=== PATIENT | male | born 1965 | race American Indian/Alaskan Native ===

== ENCOUNTER 2018-07-27 02:16 | Inpatient (IN) | payer MEDICAID ==
[2018-07-27 03:40] LABS: BASO % 0.4 % (0.0-2.0); EOS # 0.6 K/uL (0.0-0.7); EOS % 10.8 % (0.0-4.0); HEMOGLOBIN 14.4 g/dL (12.0-18.0); LYMPH # 1.6 K/uL (1.0-4.3); LYMPH % 28.3 % (20.0-40.0); MEAN CORPUSCULAR HEMOGLOBIN 29.4 pg (27.0-31.0); MEAN CORPUSCULAR HGB CONC 32.3 g/dL (33.0-37.0); MEAN PLATELET VOLUME 10.2 fL (7.2-11.7); MONO # 0.4 K/uL (0.0-0.8); MONO % 6.6 % (0.0-10.0); NEUT # 3.1 K/uL (1.8-7.0); NEUT % 53.9 % (50.0-75.0); RBC 4.88 Mil/uL (4.40-5.90); RED CELL DISTRIBUTION WIDTH 15.3 % (11.5-14.5); WHITE BLOOD COUNT 5.7 K/uL (4.8-10.8)
[2018-07-27 03:41] LABS: URINE BILIRUBIN NEGATIVE (NEGATIVE); URINE BLOOD NEGATIVE (NEGATIVE); URINE CLARITY Clear (Clear); URINE COLOR Straw (YELLOW); URINE GLUCOSE (UA) NORMAL (Normal); URINE LEUKOCYTE ESTERASE NEG Leu/uL (Negative); URINE PROTEIN NEGATIVE (NEGATIVE); URINE UROBILINOGEN NORMAL mg/dL (0.2-1.0)
--- NOTE | 2018-07-27 03:51 | C.PDOC ---
History Of Present Illness 53 year old male presents stating he has been feeling depressed for a while with SI and HI. Denies other complaints at this time. <Dago Davis R - Last Filed: 07/27/18 10:12> <Isac Mccord V - Last Filed: 07/27/18 08:30> History Per: Patient History/Exam Limitations: no limitations Onset/Duration Of Symptoms: Hrs Current Symptoms Are (Timing): Still Present Suicide/Self Injury Attempted (Context): None Associated Symptoms: Depression, Suicidal Thoughts, Other (Homicidal ideation) Involuntary Hold By: None Recent travel outside of the [place]: No <Dago Davis - Last Filed: 07/27/18 10:12> Chief Complaint (Nursing): Psychiatric Evaluation Past Medical History Vital Signs: Last Vital Signs Temp 98.7 F 07/27/18 07:04 Pulse 87 07/27/18 07:04 Resp 18 07/27/18 07:04 BP 131/74 07/27/18 07:04 Pulse Ox 99 07/27/18 07:04 - [facility] Procedures ALCOHOL DETOXIFICATION (03/30/14) DETOXIFICATION SERVICES FOR SUBSTANCE ABUSE TREATMENT (07/20/15) DRUG DETOXIFICATION (03/30/14) GROUP COUNSELING FOR SUBSTANCE ABUSE TREATMENT, BEHAVIORAL (07/20/15) INDIV PSYCHOTHERAPY FOR SUBSTANCE ABUSE, PSYCHOEDUCATION (07/20/15) INFLUENZA VACCINATION (03/30/14) MEDS MGMT FOR SUBSTANCE ABUSE TREATMENT, OTH REPL MED (07/20/15) <Isac Mccord V - Last Filed: 07/27/18 08:30> Reviewed: Historical Data, Nursing Documentation, Vital Signs Vital Signs: Last Vital Signs Temp 97.8 F 07/27/18 02:39 Pulse 99 H 07/27/18 02:39 Resp 18 07/27/18 02:39 BP 125/81 07/27/18 02:39 Pulse Ox 98 07/27/18 02:39 - Medical History PMH: Asthma, Diabetes, HTN Denies: Hepatitis, HIV, Seizures, Sexually Transmitted Disease Surgical History: Tonsillectomy - [facility] Procedures ALCOHOL DETOXIFICATION (03/30/14) DETOXIFICATION SERVICES FOR SUBSTANCE ABUSE TREATMENT (07/20/15) DRUG DETOXIFICATION (03/30/14) GROUP COUNSELING FOR SUBSTANCE ABUSE TREATMENT, BEHAVIORAL (07/20/15) INDIV PSYCHOTHERAPY FOR SUBSTANCE ABUSE, PSYCHOEDUCATION (07/20/15) INFLUENZA VACCINATION (03/30/14) MEDS MGMT FOR SUBSTANCE ABUSE TREATMENT, OTH REPL MED (07/20/15) Family History: States: Unknown Family Hx - Social History Hx Tobacco Use: Yes Hx Alcohol Use: Yes Hx Substance Use: Yes - Immunization History Hx Tetanus Toxoid Vaccination: No Hx Influenza Vaccination: No Hx Pneumococcal Vaccination: No <Dago Davis R - Last Filed: 07/27/18 10:12> Review Of Systems Constitutional: Negative for: Fever, Chills Cardiovascular: Negative for: Chest Pain, Palpitations Respiratory: Negative for: Cough, Shortness of Breath Gastrointestinal: Negative for: Nausea, Vomiting Neurological: Negative for: Weakness, Numbness Psych: Positive for: Depression, Suicidal ideation, Other (Homicidal ideation) <Dago Davis R - Last Filed: 07/27/18 10:12> Physical Exam - Physical Exam Appears: Non-toxic Skin: Normal Color, Warm, Dry Head: Atraumatic, Normacephalic Eye(s): bilateral: Normal Inspection Oral Mucosa: Moist Neck: Normal, Supple Chest: Symmetrical, No Tenderness Cardiovascular: Rhythm Regular Respiratory: Normal Breath Sounds, No Rales, No Rhonchi, No Wheezing Gastrointestinal/Abdominal: Soft, No Tenderness Neurological/Psych: Oriented x3, Normal Speech <Dago Davis R - Last Filed: 07/27/18 10:12> ED Course And Treatment - Laboratory Results Result Diagrams: 07/27/18 03:32 07/27/18 03:32 Lab Results: Total Bilirubin 0.2 mg/dL (0.2-1.3) 07/27/18 03:32 AST 55 U/L (17-59) 07/27/18 03:32 ALT 34 U/L (21-72) 07/27/18 03:32 Alkaline Phosphatase 58 U/L (38-126) 07/27/18 03:32 Total Protein 7.2 g/dL (6.3-8.3) 07/27/18 03:32 Albumin 4.2 g/dL (3.5-5.0) 07/27/18 03:32 Globulin 2.9 gm/dL (2.2-3.9) 07/27/18 03:32 Albumin/Globulin Ratio 1.4 (1.0-2.1) 07/27/18 03:32 Urine Color Straw (YELLOW) 07/27/18 03:32 Urine Clarity Clear (Clear) 07/27/18 03:32 Urine pH 5.0 (5.0-8.0) 07/27/18 03:32 Ur Specific Sunray 1.004 (1.003-1.030) 07/27/18 03:32 Urine Protein Negative mg/dL (NEGATIVE) 07/27/18 03:32 Urine Glucose (UA) Normal mg/dL (Normal) 07/27/18 03:32 Urine Ketones Negative mg/dL (NEGATIVE) 07/27/18 03:32 Urine Blood Negative (NEGATIVE) 07/27/18 03:32 Urine Nitrate Negative (NEGATIVE) 07/27/18 03:32 Urine Bilirubin Negative (NEGATIVE) 07/27/18 03:32 Urine Urobilinogen Normal mg/dL (0.2-1.0) 07/27/18 03:32 Ur Leukocyte Esterase Neg Chio/uL (Negative) 07/27/18 03:32 Urine WBC (Auto) 1 /hpf (0-5) 07/27/18 03:32 Urine RBC (Auto) < 1 /hpf (0-3) 07/27/18 03:32 <Isac Mccord V - Last Filed: 07/27/18 08:30> - Laboratory Results Result Diagrams: 07/27/18 03:32 07/27/18 03:32 Lab Results: Urine Color Straw (YELLOW) 07/27/18 03:32 Urine Clarity Clear (Clear) 07/27/18 03:32 Urine pH 5.0 (5.0-8.0) 07/27/18 03:32 Ur Specific Sunray 1.004 (1.003-1.030) 07/27/18 03:32 Urine Protein Negative mg/dL (NEGATIVE) 07/27/18 03:32 Urine Glucose (UA) Normal mg/dL (Normal) 07/27/18 03:32 Urine Ketones Negative mg/dL (NEGATIVE) 07/27/18 03:32 Urine Blood Negative (NEGATIVE) 07/27/18 03:32 Urine Nitrate Negative (NEGATIVE) 07/27/18 03:32 Urine Bilirubin Negative (NEGATIVE) 07/27/18 03:32 Urine Urobilinogen Normal mg/dL (0.2-1.0) 07/27/18 03:32 Ur Leukocyte Esterase Neg Chio/uL (Negative) 07/27/18 03:32 Urine WBC (Auto) 1 /hpf (0-5) 07/27/18 03:32 Urine RBC (Auto) < 1 /hpf (0-3) 07/27/18 03:32 O2 Sat by Pulse Oximetry: 98 (Room air) Pulse Ox Interpretation: Normal Progress Note: Blood work and urinalysis ordered. Crisis notified. <Dago Davis - Last Filed: 07/27/18 10:12> Disposition Discussed With : Angelo Gaines (admit to psych ) <Isac Mccord V - Last Filed: 07/27/18 08:30> - Disposition Disposition Time: 07:00 - POA Present On Arrival: None <Dago Davis - Last Filed: 07/27/18 10:12> - Disposition Disposition: HOSPITALIZED Condition: STABLE - Clinical Impression Clinical Impression: Opioid abuse, Depressed - Scribe Statement The provider has reviewed the documentation as recorded by the Scribe Boni Olvera All medical record entries made by the Scribe were at my direction and personally dictated by me. I have reviewed the chart and agree that the record accurately reflects my personal performance of the history, physical exam, medical decision making, and the department course for this patient. I have also personally directed, reviewed, and agree with the discharge instructions and disposition. <Dago Davis - Last Filed: 07/27/18 10:12>
[2018-07-27 03:53] LABS: ALB/GLOB RATIO 1.4 (1.0-2.1); ALBUMIN 4.2 g/dL (3.5-5.0); ALT/SGPT 34 U/L (21-72); AST/SGOT 55 U/L (17-59); BLOOD UREA NITROGEN 13 mg/dL (9-20); CALCIUM 9.8 mg/dl (8.6-10.4); GFR NON-AFRICAN AMERICAN 57
[2018-07-27 04:01] LABS: BARBITURATES, UR NEGATIVE (NEGATIVE); BENZODIAZEPINES, UR NEGATIVE (NEGATIVE); PHENCYCLIDINE, UR NEGATIVE (NEGATIVE)
[2018-07-27 04:12] LABS: OPIATES, UR POSITIVE (NEGATIVE)
[2018-07-27] MEDS ORDERED: Albuterol HFA 90 mcg/actuation (8 g) INH PRN (09:37)
--- NOTE | 2018-07-27 11:56 | PCM.PSYCH ---
Initial Psychiatric Evaluation - Initial Psychiatric Evaluation Type of Admission: Voluntary Legal Status: Capacity Chief Complaint (in patient's own words): I was feeling depressed and suicidal.' History of Present Illness and Precipitating Events: Pt is a 53 year old single male, who came to the [facility] ED for depressed mood and suicidal ideation and homicidal ideation. Patient reports history of few inpatient psychiatric hospitalizations in the past, in [place]. He also reports of history of few detoxes in the past. However he denies any history of follow-up with any psychiatrist. Patient reports history of abusing cocaine, heroin, marijuana and drinking. He reports that he is drinking up to 2 pints of liquor daily along with 12 beers. He also reports of sniffing 15-30 bags of heroin daily along with cocaine and marijuana. Patient reports that last night he consumed up to 2 pints of liquor along with 3 bundles of heroin, became increasingly suicidal and homicidal. He reports that he was feeling homicidal towards the people he was staying with. He also reports of feeling suicidal because of the living situation. Pt also reports hallucinations that he is "in hell." He stated that he sees his "mother and family looking down on me in my casket." He reports depressed mood, feelings of hopelessness and helplessness, poor sleep and poor appetite. He reports withdrawal symptoms from drinking and heroin including nausea, vomiting, shakes, anxiety, headaches, sweating, irritability. However he denies any DTs or any seizures. Patient reports of attending Methadone Maintenence program at [facility] where he was prescribed 70mg daily in 2016, but was discharged from the program after missing multiple days. Past medical history : HTN, COPD, type 2 diabetes. Current Medications: Active Medications Generic Name Dose Route Start Last Admin Trade Name Freq PRN Reason Stop Dose Admin Albuterol 1 puff 07/27/18 09:37 07/27/18 09:47 Ventolin Hfa 90 Mcg/Actuation (8 G) INH 1 unit RQ4 PRN Administration Shortness of Breath Pneumococcal Polyvalent Vaccine 0.5 ml 07/30/18 10:00 Pneumovax 23 Vaccine IM 07/30/18 10:01 .ONCE ONE Past Psychiatric History - Past Psychiatric History Previous Treatment History: None Pertinent Medical Hx (Current Medical&Sleep Prob, Allergies): Allergies Allergy/AdvReac Type Severity Reaction Status Date / Time No Known Allergies Allergy Verified 07/27/18 02:38 Advair. 03/30/14 Antihypertensive. 03/30/14 Inhaler. 03/30/14 Metformin 1,000 mg PO BID 03/30/14 Gabapentin [Neurontin] 300 mg PO TID #90 cap 07/25/15 hydroCHLOROthiazide [Microzide] 12.5 mg PO DAILY #30 cap 07/25/15 metFORMIN [glucOPHAGE] 1,000 mg PO BID #60 tab 07/25/15 traZODone [Desyrel] 50 mg PO HS PRN #30 tab 07/25/15 Review of Systems - Review of Systems All systems: reviewed and no additional remarkable complaints except - Psychiatric Psychiatric: Anxiety, Irritability, Suicidal Ideation Mental Status Examination - Personal Presentation Personal Presentation: Looks stated age - Affect Affect: Constricted, Depressed - Motor Activity Motor Activity: Calm - Reliability in Providing Information Reliability in Providing Information: Fair - Speech Speech: Organized - Mood Mood: Depressed, Anxious - Formal Thought Process Formal Thought Process: No Impairment - Obsessions/Compulsions Obsessions: No Compulsions: No - Cognitive Functions Orientation: Person, Place, Situation, Time Sensorium: Alert Attention/Concentration: Attentive Abstract Thinking: Downing Estimate of Intelligence: Below average Judgement: Imparied, as evidence by: Poor judgement, Imparied, as evidence by: Lack of insight into illness - Risk Risk: Suicidal, Homicidal, Withdrawal, Diminished functioning - Limitations Limitations: Living alone DSM 5 DX - DSM 5 DSM 5 Diagnosis: Major depressive disorder recurrent severe without psychotic features Alcohol use disorder severe Alcohol withdrawal Opioid use disorder severe Opioid withdrawal - Recommended/Plan of Treatment Treatment Recommendations and Plan of Treatment: Major depressive disorder recurrent severe without psychotic features Alcohol use disorder severe Alcohol withdrawal Opioid use disorder severe Opioid withdrawal -CBT -Psychoeducation -Supportive therapy and group therapy -Methadone taper for opiate withdrawal -Withdrawal medication including loperamide/Zofran/Bentyl etc -Librium taper for alcohol withdrawal -Withdrawal medication including multivitamin/thiamine/folic acid etc -Trazodone for insomnia -Neurontin for augmentation -Zoloft for depression - Smoking Cessation Smoking Cessation Initiated: No
[2018-07-27] MEDS ORDERED: Aluminum Hydroxide/Magnesium Hydroxide Susp (30 mL) PO PRN (12:44)
[2018-07-27] MEDS: Multiple Vitamins Tab PO SCH (12:59)
--- NOTE | 2018-07-27 13:13 | PCM.BM ---
<Rosetta Palumbo - Last Filed: 07/27/18 13:10> Treatment Plan Problems - Problems identified on initial assessmt Denial Date Initiated: 07/27/18 Time Initiated: 13:11 Assessment reference: NA Status: Active Ineffective Family Coping Date Initiated: 07/27/18 Time Initiated: 13:12 Assessment reference: NA Status: Active Treatment assets and liabiliti Patient Assests: cooperative, self-reliant, ADL independent Patient Liabilities: live alone, financial problems, poor support system, relationship conflicts - Milieu Protocol Maintain good personal hygiene: daily Encourage regular showers, daily Remind patient to perform daily oral care, daily Assist patient to perform ADL's Conduct patient checks and document Observation sheet: Q15 minutes Maintain personal safety: every shift Educate patient to report safety concerns to staff, every shift Monitor environment for contraband/sharps Medication safety: Monitor for expected outcome, potential side effects: every shift, Assess barriers to learning: every shift, Assess readiness for medication education: every shift <Angelo Gaines - Last Filed: 07/28/18 10:11> - Diagnosis (1) Major depressive disorder, recurrent severe without psychotic features Status: Acute Interventions: 07/28/18 10:13 * Assess/adjust medications daily and /or as needed * See patient on an individual basis 7x/week to assess symptoms of depression * Monitor for side effects & effectiveness of medications * (2) Opioid abuse Status: Acute Interventions: 07/28/18 10:13 * Assess 7x/week regarding severity of withdrawal * Educate regarding risks, benefits, side effects and alternatives of medications * Use Motivational Interviewing for abstinence * Use CBT for relapse prevention * Medication management for withdrawal symptoms * Encourage medication assisted treatment * (3) Alcohol abuse Status: Acute Interventions: 07/28/18 10:14 * Assess 7x/week regarding severity of withdrawal * Educate regarding risks, benefits, side effects and alternatives of medications * Use Motivational Interviewing for abstinence * Use CBT for relapse prevention * Medication management for withdrawal symptoms * Encourage medication assisted treatment * <Ann Bajwa - Last Filed: 07/28/18 12:09> Family Contact Family involvement: Patient does not wish Family/SO involvement Family contact: Patient declines to allow family contact at present - Goals for Treatment Patient goals for treatment: "I want to go to a rehab." Discharge/Continuing Care - Education Needs Education Needs: Patient Medication, Patient Diagnosis/Disease Process, Patient Coping Skills, Patient Placement options, Patient Community resources - Discharge Discharge Criteria: Free of Suicidal thoughts, Normal sleep pattern, Ability to care for self, No longer exhibiting s/s of withdrawal, Reduction of target symptoms Discharge to:: Substance Abuse Rehab - Treatment Team Participation Discussed with Family/SO: No Was Patient/Family/SO present at Treatment Team Meeting: Yes
[2018-07-28] MEDS: Fluticasone-Vilanterol 200/25mcg Diskus INH SCH (08:14)
[2018-07-28] MEDS: Multiple Vitamins Tab PO SCH (09:01)
--- NOTE | 2018-07-28 10:00 | PCM.PYCHPN ---
Psychiatric Progress Note - Psychiatric Progress Note Patient seen today, length of contact: 15 min Patient Chief Complaint: I am feeling depressed Problems Identified/Issues Discussed: Patient was seen and evaluated, chart reviewed and discussed the staff. Patient still reports depressed mood, at times feelings of hopelessness and helplessness. He also reports poor sleep. 0 As per staff he remained isolative and withdrawn. However he reports improvement in the voices. He reports withdrawal symptoms including shakes, anxiety, headaches, sweating, abdominal cramps, joint pains. Reports some improvement in suicidal and homicidal ideations. He is taking medication but denies any side effects. Supportive therapy was given Medication Change: Yes Medical Record Reviewed: Yes Mental Status Examination - Cognitive Function Orientation: Person, Place, Situation, Time Memory: Intact Attention: WNL Concentration: Poor Association: WNL Fund of Knowledge: Poor - Mood Mood: Depressed, Anxious - Affect Affect: Constricted, Depressed - Speech Speech: Soft - Formal Thought Process Formal Thought Process: No Impairment - Suicidal Ideation Suicidal Ideation: No - Homicidal Ideation Homicidal Ideation: No Goal/Treatment Plan - Goal/Treatment Plan Need for Continued Stay: Remain at risks for inpatient hospitalization Progress Toward Problem(s) and Goals/Treatment Plan: Major depressive disorder recurrent severe without psychotic features Alcohol use disorder severe Alcohol withdrawal Opioid use disorder severe Opioid withdrawal -CBT -Psychoeducation -Supportive therapy and group therapy -Methadone taper for opiate withdrawal -Withdrawal medication including loperamide/Zofran/Bentyl etc -Librium taper for alcohol withdrawal -Withdrawal medication including multivitamin/thiamine/folic acid etc -Trazodone for insomnia -Neurontin for augmentation -Zoloft for depression
[2018-07-29] MEDS: Fluticasone-Vilanterol 200/25mcg Diskus INH SCH (09:44)
[2018-07-29] MEDS: Multiple Vitamins Tab PO SCH (09:46)
--- NOTE | 2018-07-29 10:54 | PCM.PYCHPN ---
Psychiatric Progress Note - Psychiatric Progress Note Patient seen today, length of contact: 15 min Patient Chief Complaint: I am feeling depressed Problems Identified/Issues Discussed: Patient was seen and evaluated, chart reviewed and discussed the staff. Patient still reports depressed mood, at times feelings of hopelessness and helplessness. He also reports poor sleep. He reports improvement in the voices. He reports withdrawal symptoms including shakes, anxiety, headaches, sweating, abdominal cramps, joint pains. Reports some improvement in suicidal ideations. He is taking medication but denies any side effects. Supportive therapy was given Medication Change: Yes Medical Record Reviewed: Yes Mental Status Examination - Cognitive Function Orientation: Person, Place, Situation, Time Memory: Intact Attention: WNL Concentration: Poor Association: WNL Fund of Knowledge: Poor - Mood Mood: Depressed, Anxious - Affect Affect: Constricted, Depressed - Speech Speech: Soft - Formal Thought Process Formal Thought Process: No Impairment - Suicidal Ideation Suicidal Ideation: No - Homicidal Ideation Homicidal Ideation: No Goal/Treatment Plan - Goal/Treatment Plan Need for Continued Stay: Remain at risks for inpatient hospitalization Progress Toward Problem(s) and Goals/Treatment Plan: Major depressive disorder recurrent severe without psychotic features Alcohol use disorder severe Alcohol withdrawal Opioid use disorder severe Opioid withdrawal -CBT -Psychoeducation -Supportive therapy and group therapy -Methadone taper for opiate withdrawal -Withdrawal medication including loperamide/Zofran/Bentyl etc -Librium taper for alcohol withdrawal -Withdrawal medication including multivitamin/thiamine/folic acid etc -Trazodone for insomnia -Neurontin for augmentation -Zoloft for depression
[2018-07-30] MEDS: Fluticasone-Vilanterol 200/25mcg Diskus INH SCH (08:25)
[2018-07-30] MEDS: Multiple Vitamins Tab PO SCH (09:46)
[2018-07-30] MEDS ORDERED: Pneumococcal 23-Valent Vaccine IM ONE (10:00)
--- NOTE | 2018-07-30 13:24 | PCM.PYCHPN ---
Psychiatric Progress Note - Psychiatric Progress Note Patient seen today, length of contact: 15 min Patient Chief Complaint: I am feeling depressed Problems Identified/Issues Discussed: Patient was seen and evaluated, chart reviewed and discussed the staff. As per staff he remained isolative and withdrawn. Patient still reports depressed mood, at times feelings of hopelessness and helplessness. He also reports poor sleep. He reports withdrawal symptoms including shakes, anxiety, headaches, sweating, abdominal cramps, joint pains. Reports some improvement in suicidal and homicidal ideations. He is taking medication but denies any side effects. Supportive therapy was given Medication Change: Yes Medical Record Reviewed: Yes Mental Status Examination - Cognitive Function Orientation: Person, Place, Situation, Time Memory: Intact Attention: WNL Concentration: Poor Association: WNL Fund of Knowledge: Poor - Mood Mood: Depressed, Anxious - Affect Affect: Constricted, Depressed - Speech Speech: Soft - Formal Thought Process Formal Thought Process: No Impairment - Suicidal Ideation Suicidal Ideation: No - Homicidal Ideation Homicidal Ideation: No Goal/Treatment Plan - Goal/Treatment Plan Need for Continued Stay: Remain at risks for inpatient hospitalization Progress Toward Problem(s) and Goals/Treatment Plan: Major depressive disorder recurrent severe without psychotic features Alcohol use disorder severe Alcohol withdrawal Opioid use disorder severe Opioid withdrawal -CBT -Psychoeducation -Supportive therapy and group therapy -Methadone taper for opiate withdrawal -Withdrawal medication including loperamide/Zofran/Bentyl etc -Librium taper for alcohol withdrawal -Withdrawal medication including multivitamin/thiamine/folic acid etc -Trazodone for insomnia -Neurontin for augmentation -Zoloft for depression
[2018-07-31] MEDS: Fluticasone-Vilanterol 200/25mcg Diskus INH SCH (08:07)
[2018-07-31 08:42] VITALS: O2SAT 97
[2018-07-31] MEDS: Multiple Vitamins Tab PO SCH (09:10)
--- NOTE | 2018-07-31 10:48 | PCM.PYCHPN ---
Psychiatric Progress Note - Psychiatric Progress Note Patient seen today, length of contact: 15 min Patient Chief Complaint: I am feeling little better Problems Identified/Issues Discussed: Patient was seen and evaluated, chart reviewed and discussed the staff. Patient reports improvement in his mood and reports improvement in the feelings of hopelessness and helplessness. He reports improvement in the withdrawal symptoms but still reports anxiety, headaches, cramps and pains. He was to go to rehab after discharge. He is taking medication but denies any side effects. Symptoms are improving but he needs to stay longer for the stabilization. Supportive therapy was provided. Medication Change: Yes Medical Record Reviewed: Yes Mental Status Examination - Cognitive Function Orientation: Person, Place, Situation, Time Memory: Intact Attention: WNL Concentration: Poor Association: WNL Fund of Knowledge: Poor - Mood Mood: Depressed, Anxious - Affect Affect: Constricted, Depressed - Speech Speech: Soft - Formal Thought Process Formal Thought Process: No Impairment - Suicidal Ideation Suicidal Ideation: No - Homicidal Ideation Homicidal Ideation: No Goal/Treatment Plan - Goal/Treatment Plan Need for Continued Stay: Remain at risks for inpatient hospitalization Progress Toward Problem(s) and Goals/Treatment Plan: Major depressive disorder recurrent severe without psychotic features Alcohol use disorder severe Alcohol withdrawal Opioid use disorder severe Opioid withdrawal -CBT -Psychoeducation -Supportive therapy and group therapy -Methadone taper for opiate withdrawal -Withdrawal medication including loperamide/Zofran/Bentyl etc -Librium taper for alcohol withdrawal -Withdrawal medication including multivitamin/thiamine/folic acid etc -Trazodone for insomnia -Neurontin for augmentation -Zoloft for depression
[2018-08-01 06:20] VITALS: RESP 18
[2018-08-01] MEDS: Fluticasone-Vilanterol 200/25mcg Diskus INH SCH (07:58)
--- NOTE | 2018-08-01 09:45 | PCM.PYCHPN ---
Psychiatric Progress Note - Psychiatric Progress Note Patient seen today, length of contact: 15 min Patient Chief Complaint: I am feeling little better Problems Identified/Issues Discussed: Patient was seen and evaluated, chart reviewed and discussed the staff. He was to go to rehab after discharge. Patient reports improvement in his mood and reports improvement in the feelings of hopelessness and helplessness. He reports improvement in the withdrawal symptoms but still reports anxiety, headaches, cramps and pains. He is taking medication but denies any side effects. Symptoms are improving but he needs to stay longer for the stabilization. Supportive therapy was provided. Medication Change: Yes Medical Record Reviewed: Yes Mental Status Examination - Cognitive Function Orientation: Person, Place, Situation, Time Memory: Intact Attention: WNL Concentration: WNL Association: WNL Fund of Knowledge: Poor - Mood Mood: Depressed, Anxious - Affect Affect: Constricted, Depressed - Speech Speech: Soft - Formal Thought Process Formal Thought Process: No Impairment - Suicidal Ideation Suicidal Ideation: No - Homicidal Ideation Homicidal Ideation: No Goal/Treatment Plan - Goal/Treatment Plan Need for Continued Stay: Remain at risks for inpatient hospitalization Progress Toward Problem(s) and Goals/Treatment Plan: Major depressive disorder recurrent severe without psychotic features Alcohol use disorder severe Alcohol withdrawal Opioid use disorder severe Opioid withdrawal -CBT -Psychoeducation -Supportive therapy and group therapy -Methadone taper for opiate withdrawal -Withdrawal medication including loperamide/Zofran/Bentyl etc -Librium taper for alcohol withdrawal -Withdrawal medication including multivitamin/thiamine/folic acid etc -Trazodone for insomnia -Neurontin for augmentation -Zoloft for depression - Smoking Cessation Smoking Cessation Initiated: No
[2018-08-01] MEDS: Multiple Vitamins Tab PO SCH (10:09)
[2018-08-02] MEDS: Fluticasone-Vilanterol 200/25mcg Diskus INH SCH (08:11)
[2018-08-02] MEDS: Multiple Vitamins Tab PO SCH (09:18)
--- NOTE | 2018-08-02 22:51 | PCM.PYCHPN ---
Psychiatric Progress Note - Psychiatric Progress Note Patient seen today, length of contact: 18 min Patient Chief Complaint: "I am still depressed and upset with my girlfriend" Problems Identified/Issues Discussed: Patient was seen and chart was reviewed. Case was discussed with treatment team. Issues related to the illness and treatments were discussed with the patient, and issues related to illness and treatments were discussed with the patient and staff. Patient reported compliance with treatment and no adverse effects from the medications were reported. Patient is tolerating treatment well at this time. Patient denies any withdrawal symptoms such as body aches, sweating, nausea, decreased sleep or headaches at this time. Patient reports mood as improved, affect is congruent with mood. Aftercare was discussed with patient and he verbalized understanding. Patient denies any delusions, auditory/visual hallucinations, or perceptual disturbances. Patient also denies any suicidal or homicidal ideation/plan/intent at this time. Medication Change: No Medical Record Reviewed: Yes Mental Status Examination - Cognitive Function Orientation: Person, Place, Situation, Time Memory: Intact Attention: WNL Concentration: WNL Association: WNL Fund of Knowledge: Poor - Mood Mood: Depressed, Anxious - Affect Affect: Constricted, Depressed - Speech Speech: Soft - Formal Thought Process Formal Thought Process: No Impairment - Suicidal Ideation Suicidal Ideation: No - Homicidal Ideation Homicidal Ideation: No Goal/Treatment Plan - Goal/Treatment Plan Need for Continued Stay: Remain at risks for inpatient hospitalization Progress Toward Problem(s) and Goals/Treatment Plan: Continue medications Support and psychoeducation daily Attend groups and activities daily Individual therapy After care planning by SAIMA and the team
[2018-08-03] MEDS: Multiple Vitamins Tab PO SCH (09:23)
[2018-08-03 09:24] VITALS: TEMP 98.2
[2018-08-03] MEDS: Fluticasone-Vilanterol 200/25mcg Diskus INH SCH (09:29)
[2018-08-04 06:51] VITALS: BP 132/77; PULSE 80
[2018-08-04] MEDS: Fluticasone-Vilanterol 200/25mcg Diskus INH SCH (08:25)
--- NOTE | 2018-08-04 09:29 | PCM.PYCHDC ---
Mental Status Examination - Mental Status Examination Orientation: Person, Place, Situation, Time Memory: Intact Mood: Neutral Affect: Constricted Speech: Soft Attention: WNL Concentration: WNL Association: WNL Fund of Knowledge: WNL Formal Thought Process: No Impairment Description of patient's judgement and insight: good, fair Psychotic Thoughts and Behaviors: denies any AVH Suicidal Ideation: No Current Homicidal Ideation?: No Discharge Summary - Discharge Note Reason for Hospitalization: Pt is a 53 year old single male, who came to the [facility] ED for depressed mood and suicidal ideation and homicidal ideation. Patient reports history of few inpatient psychiatric hospitalizations in the past, in [place]. He also reports of history of few detoxes in the past. However he denies any history of follow-up with any psychiatrist. Patient reports history of abusing cocaine, heroin, marijuana and drinking. He reports that he is drinking up to 2 pints of liquor daily along with 12 beers. He also reports of sniffing 15-30 bags of heroin daily along with cocaine and marijuana. Patient reports that last night he consumed up to 2 pints of liquor along with 3 bundles of heroin, became increasingly suicidal and homicidal. He reports that he was feeling homicidal towards the people he was staying with. He also reports of feeling suicidal because of the living situation. Pt also reports hallucinations that he is "in hell." He stated that he sees his "mother and family looking down on me in my casket." He reports depressed mood, feelings of hopelessness and helplessness, poor sleep and poor appetite. He reports withdrawal symptoms from drinking and heroin including nausea, vomiting, shakes, anxiety, headaches, sweating, irritability. However he denies any DTs or any seizures. Patient reports of attending Methadone Maintenence program at [facility] where he was prescribed 70mg daily in 2016, but was discharged from the program after missing multiple days. Laboratory Data: Abnormal Lab Results 08/04/18 07:49 POC Glucose (mg/dL) 207 H Consultations:: List each consultation separately and include: 1. Reason for request. 2. Findings. 3. Follow-up Summary of Hospital Course include:: 1. Description of specific treatment plan utilized for patients during their course of treatmen. 2. Summarize the time- course for resolution of acute symptoms and/or regressed behaviors. 3. Describe issues identified and worked on during hospitalization. 4. Describe medication utilized. 5. Describe medical problems identified and treated. 6. Reassessment of suicide risk Summary of Hospital Course: Pt is a 53 year old single male, who came to the [facility] ED for depressed mood and suicidal ideation and homicidal ideation. Patient reports history of few inpatient psychiatric hospitalizations in the past, in [place]. He also reports of history of few detoxes in the past. However he denies any history of follow-up with any psychiatrist. Patient reports history of abusing cocaine, heroin, marijuana and drinking. He reports that he is drinking up to 2 pints of liquor daily along with 12 beers. He also reports of sniffing 15-30 bags of heroin daily along with cocaine and marijuana. Patient reports that last night he consumed up to 2 pints of liquor along with 3 bundles of heroin, became increasingly suicidal and homicidal. He reports that he was feeling homicidal towards the people he was staying with. He also reports of feeling suicidal because of the living situation. Pt also reports hallucinations that he is "in hell." He stated that he sees his "mother and family looking down on me in my casket." He reports depressed mood, feelings of hopelessness and helplessness, poor sleep and poor appetite. He reports withdrawal symptoms from drinking and heroin including nausea, vomiting, shakes, anxiety, headaches, sweating, irritability. However he denies any DTs or any seizures. Patient reports of attending Methadone Maintenence program at [facility] where he was prescribed 70mg daily in 2016, but was discharged from the program after missing multiple days. Past medical history : HTN, COPD, type 2 diabetes. - Diagnosis (1) Major depressive disorder, recurrent severe without psychotic features Current Visit: Yes Status: Acute (2) Opioid abuse Current Visit: Yes Status: Acute (3) Alcohol abuse Current Visit: No Status: Acute - Final Diagnosis (DSM 5) Condition upon Discharge: STABLE DSM 5: Major depressive disorder recurrent severe without psychotic features Alcohol use disorder severe Alcohol withdrawal Opioid use disorder severe Opioid withdrawal Disposition: HOME/ ROUTINE Follow-up Treatment Plan: Major depressive disorder recurrent severe without psychotic features Alcohol use disorder severe Alcohol withdrawal Opioid use disorder severe Opioid withdrawal -CBT -Psychoeducation -Supportive therapy and group therapy -Methadone taper for opiate withdrawal -Withdrawal medication including loperamide/Zofran/Bentyl etc -Librium taper for alcohol withdrawal -Withdrawal medication including multivitamin/thiamine/folic acid etc -Trazodone for insomnia -Neurontin for augmentation -Zoloft for depression Prescriptions/Medication Reconciliation: Albuterol HFA [Ventolin HFA 90 mcg/actuation (8 g)] 1 puff INH RQ4 PRN #1 inhaler PRN Reason: Shortness Of Breath Fluticasone/Vilanterol 200/25 [Breo Ellipta 200-25 Mcg INH] 1 puff INH RQD #1 puff Gabapentin [Neurontin] 300 mg PO TID #90 cap hydroCHLOROthiazide [Microzide] 12.5 mg PO DAILY #30 cap metFORMIN [glucOPHAGE] 1,000 mg PO BID #60 tab Thiamine [Vitamin B1 Tab] 100 mg PO DAILY #30 tab traZODone [Desyrel] 50 mg PO HS PRN #30 tab PRN Reason: Insomnia
[2018-08-04] MEDS: Multiple Vitamins Tab PO SCH (09:38)
== END 2018-08-04 10:50 | disposition home or self-care (01) | DRG 430 ==
LOC: SUPCPDRO 02:16 → C.ER 02:16 → C.5E 08:34
PROVIDERS: ADMIT Psychiatry & Neurology Psychiatry; ATTEND Psychiatry & Neurology Psychiatry
PROC: GZ3ZZZZ Medication Management (ICD-10-PCS; principal; 2018-07-27)
PROC: HZ81ZZZ Medication Management for Substance Abuse Treatment, Methadone Maintenance (ICD-10-PCS; 2018-07-27)
PROC: HZ89ZZZ Medication Management for Substance Abuse Treatment, Other Replacement Medication (ICD-10-PCS; 2018-07-27)
PROC: GZHZZZZ Group Psychotherapy (ICD-10-PCS; 2018-07-27)
PROC: GZ56ZZZ Individual Psychotherapy, Supportive (ICD-10-PCS; 2018-07-27)
PROC: HZ56ZZZ Individual Psychotherapy for Substance Abuse Treatment, Psychoeducation (ICD-10-PCS; 2018-07-27)
DX: F33.2 Major depressive disorder, recurrent severe without psychotic features (principal); F11.23 Opioid dependence with withdrawal; F10.239 Alcohol dependence with withdrawal, unspecified; R45.851 Suicidal ideations; R45.850 Homicidal ideations; F17.210 Nicotine dependence, cigarettes, uncomplicated; F41.9 Anxiety disorder, unspecified; J44.9 Chronic obstructive pulmonary disease, unspecified; E11.9 Type 2 diabetes mellitus without complications; I10 Essential (primary) hypertension; G47.00 Insomnia, unspecified; R51 Headache

== ENCOUNTER 2018-08-14 01:00 | Inpatient (IN) | payer MEDICAID ==
[2018-08-14 01:14] VITALS: O2SAT 96
--- NOTE | 2018-08-14 01:19 | C.PDOC ---
History Of Present Illness The patient presents to the ED for psychiatric evaluation. Patient states he is depressed and admits to using heroin tonight. Patient admits to suicidal ideation but denies suicidal plan. Patient offers no additional complaints at is time. Time Seen by Provider: 08/14/18 01:19 Chief Complaint (Nursing): Psychiatric Evaluation History Per: Patient History/Exam Limitations: no limitations Onset/Duration Of Symptoms: Hrs Current Symptoms Are (Timing): Still Present Suicide/Self Injury Attempted (Context): None Modifying Factor(s): Other (heroin ) Severity: None Pain Scale Rating Of: 0 Associated Symptoms: Depression, Suicidal Thoughts. denies: Suicidal Plan Involuntary Hold By: None Recent travel outside of the [place]: No Additional History Per: Patient Past Medical History Reviewed: Historical Data, Nursing Documentation, Vital Signs Vital Signs: Last Vital Signs Temp 98.8 F 08/14/18 01:09 Pulse 93 H 08/14/18 01:09 Resp 20 08/14/18 01:09 BP 131/91 H 08/14/18 01:09 Pulse Ox 96 08/14/18 01:09 - Medical History PMH: Anxiety, Asthma, COPD, Diabetes, HTN Denies: Hepatitis, HIV, Seizures, Sexually Transmitted Disease Surgical History: Tonsillectomy - [facility] Procedures ALCOHOL DETOXIFICATION (03/30/14) DETOXIFICATION SERVICES FOR SUBSTANCE ABUSE TREATMENT (07/20/15) DRUG DETOXIFICATION (03/30/14) GROUP COUNSELING FOR SUBSTANCE ABUSE TREATMENT, BEHAVIORAL (07/20/15) GROUP PSYCHOTHERAPY (07/27/18) INDIV PSYCHOTHERAPY FOR SUBSTANCE ABUSE, PSYCHOEDUCATION (07/27/18) INDIVIDUAL PSYCHOTHERAPY, SUPPORTIVE (07/27/18) INFLUENZA VACCINATION (03/30/14) MEDICATION MANAGEMENT (07/27/18) MEDS MGMT FOR SUBSTANCE ABUSE TREATMENT, METHADONE MAINT (07/27/18) MEDS MGMT FOR SUBSTANCE ABUSE TREATMENT, OTH REPL MED (07/27/18) Family History: States: Unknown Family Hx - Social History Hx Tobacco Use: Yes Hx Alcohol Use: Yes Hx Substance Use: Yes - Immunization History Hx Tetanus Toxoid Vaccination: No Hx Influenza Vaccination: No Hx Pneumococcal Vaccination: No Review Of Systems Constitutional: Negative for: Fever, Chills Cardiovascular: Negative for: Chest Pain, Palpitations Respiratory: Negative for: Cough, Shortness of Breath Gastrointestinal: Negative for: Nausea, Vomiting Skin: Negative for: Rash, Lesions, Jaundice, Bruising Psych: Positive for: Depression, Suicidal ideation (no plan ), Other (heroin use ) Physical Exam - Physical Exam Appears: Non-toxic, No Acute Distress Skin: Warm, Dry Head: Normacephalic Oral Mucosa: Moist Neck: Supple Chest: Symmetrical, No Deformity Respiratory: No Accessory Muscle Use Gastrointestinal/Abdominal: Soft, No Tenderness Extremity: Normal ROM Neurological/Psych: Oriented x3 Gait: Steady ED Course And Treatment - Laboratory Results Result Diagrams: 08/14/18 01:39 08/14/18 01:39 O2 Sat by Pulse Oximetry: 96 (on RA) Pulse Ox Interpretation: Normal Progress Note: Bloodwork and urinalysis ordered and reviewed. Patient will be further evaluated by mortar worker. Disposition Discussed With : Kalpana Asher Comment: accepted the pt on his service and took over the care at 4:12 AM Doctor Will See Patient In The: Hospital Counseled Patient/Family Regarding: Studies Performed, Diagnosis - Disposition Disposition: HOSPITALIZED Disposition Time: : Condition: FAIR Forms: [employer] (Singaporean) - Clinical Impression Clinical Impression: Major depression with psychotic features - Scribe Statement The provider has reviewed the documentation as recorded by the Scribe (Elli Zuñiga) Provider Attestation: All medical record entries made by the Scribe were at my direction and personally dictated by me. I have reviewed the chart and agree that the record accurately reflects my personal performance of the history, physical exam, medical decision making, and the department course for this patient. I have also personally directed, reviewed, and agree with the discharge instructions and disposition. Decision To Admit - Pt Status Changed To: Hospital Disposition Of: Inpatient - Admit Certification Admit to Inpatient:: After my assessment, the patient will require hospitalization for at least two midnights. This is because of the severity of symptoms shown, intensity of services needed, and/or the medical risk in this patient being treated as an outpatient. - InPatient: Physician Admission Certification: I certify that this patient requires 2 or more midnights of care for the following reason:: After my assessment, the patient will require hospitalization for at least two midnights. This is because of the severity of symptoms shown, intensity of services needed, and/or the medical risk in this patient being treated as an outpatient. - . Bed Request Type: Psychiatry Admitting Physician: Kalpana Asher Patient Diagnosis: Major depression with psychotic features
[2018-08-14 01:46] LABS: BASO % 0.8 % (0.0-2.0); EOS # 0.3 K/uL (0.0-0.7); EOS % 6.3 % (0.0-4.0); HEMOGLOBIN 13.7 g/dL (12.0-18.0); LYMPH # 1.8 K/uL (1.0-4.3); LYMPH % 33.3 % (20.0-40.0); MEAN CELL VOLUME 90.2 fL (80.0-94.0); MEAN CORPUSCULAR HEMOGLOBIN 29.2 pg (27.0-31.0); MEAN CORPUSCULAR HGB CONC 32.3 g/dL (33.0-37.0); MEAN PLATELET VOLUME 10.8 fL (7.2-11.7); MONO # 0.4 K/uL (0.0-0.8); MONO % 7.9 % (0.0-10.0); NEUT # 2.8 K/uL (1.8-7.0); NEUT % 51.7 % (50.0-75.0); NRBC % 0.1 % (0.0-2.0); RBC 4.7 Mil/uL (4.40-5.90); RED CELL DISTRIBUTION WIDTH 14.9 % (11.5-14.5); WHITE BLOOD COUNT 5.5 K/uL (4.8-10.8)
[2018-08-14 01:59] LABS: SQUAMOUS EPITHIAL < 1 /hpf (0-5); URINE BILIRUBIN NEGATIVE (NEGATIVE); URINE BLOOD NEGATIVE (NEGATIVE); URINE CLARITY Clear (Clear); URINE COLOR Straw (YELLOW); URINE GLUCOSE (UA) NORMAL (Normal); URINE LEUKOCYTE ESTERASE NEG Leu/uL (Negative); URINE PROTEIN NEGATIVE (NEGATIVE)
[2018-08-14 02:04] LABS: ALB/GLOB RATIO 1.4 (1.0-2.1); ALBUMIN 4.2 g/dL (3.5-5.0); ALT/SGPT 44 U/L (21-72); AST/SGOT 59 U/L (17-59); BLOOD UREA NITROGEN 14 mg/dL (9-20); CALCIUM 9.9 mg/dl (8.6-10.4); GFR NON-AFRICAN AMERICAN 53
[2018-08-14 02:08] LABS: BARBITURATES, UR NEGATIVE (NEGATIVE); BENZODIAZEPINES, UR NEGATIVE (NEGATIVE)
[2018-08-14 02:47] LABS: PHENCYCLIDINE, UR NEGATIVE (NEGATIVE)
[2018-08-14 02:50] LABS: OPIATES, UR POSITIVE (NEGATIVE)
--- NOTE | 2018-08-14 06:51 | PCM.BM ---
<Jose Jara - Last Filed: 08/14/18 06:48> Treatment Plan Problems - Problems identified on initial assessmt INEFFECTIVE COPING Date Initiated: 08/14/18 Time Initiated: 05:25 Assessment reference: NA Status: Active COMMAND HALLUCINATION Date Initiated: 08/14/18 Time Initiated: 05:25 Assessment reference: NA Status: Active Treatment assets and liabiliti Patient Assests: cooperative, self-reliant, ADL independent, negotiates basic needs Patient Liabilities: live alone, financial problems, poor support system, substance abuse - Milieu Protocol Maintain good personal hygiene: daily Encourage regular showers, daily Remind patient to perform daily oral care, daily Assist patient to perform ADL's Conduct patient checks and document Observation sheet: Q15 minutes Maintain personal safety: every shift Educate patient to report safety concerns to staff, every shift Monitor environment for contraband/sharps Medication safety: Monitor for expected outcome, potential side effects: every shift, Assess barriers to learning: every shift, Assess readiness for medication education: every shift <Angelo Gaines - Last Filed: 08/15/18 11:50> - Diagnosis (1) Major depression with psychotic features Status: Acute Interventions: 08/15/18 11:50 * Assess/adjust medications daily and /or as needed * See patient on an individual basis 7x/week to assess symptoms of depression * Monitor for side effects & effectiveness of medications * (2) Alcohol abuse Status: Acute Interventions: 08/15/18 11:51 * Assess 7x/week regarding severity of withdrawal * Educate regarding risks, benefits, side effects and alternatives of medications * Use Motivational Interviewing for abstinence * Use CBT for relapse prevention * Medication management for withdrawal symptoms * Encourage medication assisted treatment * <Ann Bajwa - Last Filed: 08/15/18 13:14> Family Contact Family involvement: Patient does not wish Family/SO involvement Family contact: Patient declines to allow family contact at present - Goals for Treatment Patient goals for treatment: "I want to go to [facility]." Discharge/Continuing Care - Education Needs Education Needs: Patient Medication, Patient Diagnosis/Disease Process, Patient Coping Skills, Patient Placement options, Patient Community resources - Discharge Discharge Criteria: Free of Suicidal thoughts, Free of paranoid thoughts, Free of agitation, Normal sleep pattern, Ability to care for self, No longer exhibiting s/s of withdrawal, Reduction of target symptoms Discharge to:: Substance Abuse Rehab - Treatment Team Participation Discussed with Family/SO: No Was Patient/Family/SO present at Treatment Team Meeting: Yes
--- NOTE | 2018-08-14 10:01 | PCM.PSYCH ---
Initial Psychiatric Evaluation - Initial Psychiatric Evaluation Type of Admission: Voluntary Legal Status: Capacity Chief Complaint (in patient's own words): I was hearing voices.' History of Present Illness and Precipitating Events: Patient is a 53 YO M with past psych history of depression with psychosis and substance use presenting to the [facility] ED on 08/14/18 with suicidal ideations. Patient stated he was depressed and using heroin last night. He was hospitalized for suicidal and homicidal ideation at [facility] on 07/27/18. Patient was sent to rehab on discharge and did not follow up. He stated yelling and screaming last night on the streets because "people were watching me.". He has since relapsed on heroin 3-4 bundles per day , cocaine 3-4 bundles per day, and drinking alcohol 2 pints per day. He currently reports auditory and visual hallucinations, hearing voices commanding him to hurt himself and others. He was visual hallucinations of people watching him. He reported feeling paranoid, stating "I need to be alert when people come to attack me.". On exam patient was visibly agitated, nervous and had minimal eye contact. He had pressured speech and visible tremors. He remained superficially cooperative but guarded about the details. He reports withdrawal symptoms from heroin including nausea, vomiting, cramps and joint pain. He reports at times depressed mood and feelings of hopelessness and helplessness. Past medical history None reported Current Medications: Active Medications Generic Name Dose Route Start Last Admin Trade Name Freq PRN Reason Stop Dose Admin Pneumococcal Polyvalent Vaccine 0.5 ml 08/15/18 10:00 Pneumovax 23 Vaccine IM 08/15/18 10:01 .ONCE ONE Past Psychiatric History - Past Psychiatric History Previous Treatment History: Inpatient Pertinent Medical Hx (Current Medical&Sleep Prob, Allergies): Allergies Allergy/AdvReac Type Severity Reaction Status Date / Time No Known Allergies Allergy Verified 08/14/18 01:14 Advair. 03/30/14 Antihypertensive. 03/30/14 Inhaler. 03/30/14 Metformin 1,000 mg PO BID 03/30/14 Gabapentin [Neurontin] 300 mg PO TID #90 cap 07/25/15 hydroCHLOROthiazide [Microzide] 12.5 mg PO DAILY #30 cap 07/25/15 Albuterol HFA [Ventolin HFA 90 mcg/actuation (8 g)] 1 puff INH RQ4 PRN #1 inhaler 08/04/18 Fluticasone/Vilanterol 200/25 [Breo Ellipta 200-25 Mcg INH] 1 puff INH RQD #1 puff 08/04/18 Gabapentin [Neurontin] 300 mg PO TID #90 cap 08/04/18 Thiamine [Vitamin B1 Tab] 100 mg PO DAILY #30 tab 08/04/18 hydroCHLOROthiazide [Microzide] 12.5 mg PO DAILY #30 cap 08/04/18 metFORMIN [glucOPHAGE] 1,000 mg PO BID #60 tab 08/04/18 traZODone [Desyrel] 50 mg PO HS PRN #30 tab 08/04/18 Review of Systems - Review of Systems All systems: reviewed and no additional remarkable complaints except - Psychiatric Psychiatric: Anxiety, Irritability, Suicidal Ideation Mental Status Examination - Personal Presentation Personal Presentation: Looks stated age - Affect Affect: Constricted, Depressed - Motor Activity Motor Activity: Calm - Reliability in Providing Information Reliability in Providing Information: Poor, due to altered mood - Speech Speech: Organized - Mood Mood: Depressed, Anxious - Formal Thought Process Formal Thought Process: Hallucinations, Delusions, Paranoia - Hallucinations/Delusions Hallucinations: Auditory Delusions: Persecution - Obsessions/Compulsions Obsessions: No Compulsions: No - Cognitive Functions Orientation: Person, Place, Situation, Time Sensorium: Alert Attention/Concentration: Attentive Abstract Thinking: Rudd Estimate of Intelligence: Below average Judgement: Imparied, as evidence by: Poor judgement, Imparied, as evidence by: Lack of insight into illness - Risk Risk: Suicidal, Withdrawal, Diminished functioning - Limitations Limitations: Living alone DSM 5 DX - DSM 5 DSM 5 Diagnosis: Major depressive disorder recurrent severe with psychotic features Opioid use disorder severe Opioid withdrawal Alcohol use disorder severe Alcohol withdrawal - Recommended/Plan of Treatment Treatment Recommendations and Plan of Treatment: Major depressive disorder recurrent severe with psychotic features Opioid use disorder severe Opioid withdrawal Alcohol use disorder severe Alcohol withdrawal -CBT -Psychoeducation -Supportive therapy and group therapy -Neurontin for augmentation -Methadone taper -Librium taper for alcohol withdrawal -Withdrawal medication including Zofran/clonidine/Motrin -Trazodone for insomnia -Hydroxyzine for anxiety - Smoking Cessation Smoking Cessation Initiated: No
[2018-08-14] MEDS ORDERED: Benzocaine/Menthol (Cepacol) Lozenge PO PRN (10:02)
[2018-08-14] MEDS ORDERED: Aluminum Hydroxide/Magnesium Hydroxide Susp (30 mL) PO PRN (10:02)
[2018-08-14] MEDS: Multiple Vitamins Tab PO SCH (10:46)
[2018-08-15] MEDS ORDERED: Pneumococcal 23-Valent Vaccine IM ONE (10:00)
[2018-08-15] MEDS: Multiple Vitamins Tab PO SCH ×2 (10:07→10:12)
--- NOTE | 2018-08-15 11:52 | PCM.PYCHPN ---
Psychiatric Progress Note - Psychiatric Progress Note Patient seen today, length of contact: 15 min Patient Chief Complaint: I was hearing voices.' Problems Identified/Issues Discussed: Patient seen and evaluated, chart reviewed and discussed with the nurse. As per staff, patient remained isolative and withdrawn. Patient reports depressed mood and feelings of hopelessness and helplessness. He still reports hallucinations and paranoia. Patient still reports of w ithdrawal symptoms including anxiety, cramps, bone pains, sweating and headaches. He reports irritability and agitation. He is taking medication and denies any side effects. He needs to stay longer for further stabilization. Supportive therapy and psychoeducation were given Medication Change: Yes Medical Record Reviewed: Yes Mental Status Examination - Cognitive Function Orientation: Person, Place, Situation, Time Memory: Intact Attention: WNL Concentration: Poor Association: WNL Fund of Knowledge: Poor - Mood Mood: Depressed, Anxious - Affect Affect: Constricted, Depressed - Speech Speech: Soft - Formal Thought Process Formal Thought Process: Hallucinations, Delusions, Paranoia - Suicidal Ideation Suicidal Ideation: No - Homicidal Ideation Homicidal Ideation: No Goal/Treatment Plan - Goal/Treatment Plan Need for Continued Stay: Remain at risks for inpatient hospitalization Progress Toward Problem(s) and Goals/Treatment Plan: Major depressive disorder recurrent severe with psychotic features Opioid use disorder severe Opioid withdrawal Alcohol use disorder severe Alcohol withdrawal -CBT -Psychoeducation -Supportive therapy and group therapy -Neurontin for augmentation -Methadone taper -Librium taper for alcohol withdrawal -Withdrawal medication including Zofran/clonidine/Motrin -Trazodone for insomnia -Hydroxyzine for anxiety -Seroquel for psychosis -Paxil for depression
[2018-08-16] MEDS: Multiple Vitamins Tab PO SCH (09:33)
--- NOTE | 2018-08-16 23:18 | PCM.PYCHPN ---
Psychiatric Progress Note - Psychiatric Progress Note Patient seen today, length of contact: 15 min Patient Chief Complaint: I m feeling little better.' Problems Identified/Issues Discussed: Patient seen and evaluated, chart reviewed and discussed with the nurse. Patient reports some improvement in the depressed mood and feelings of hopelessness and helplessness. As per staff, patient remained isolative and withdrawn. He still reports hallucinations and paranoia. Patient some improvement in the withdrawal symptoms but reports bone pains, sweating and headaches. He reports irritability and agitation. He is taking medication and denies any side effects. He needs to stay longer for further stabilization. Supportive therapy and psychoeducation were given Medication Change: Yes Medical Record Reviewed: Yes Mental Status Examination - Cognitive Function Orientation: Person, Place, Situation, Time Memory: Intact Attention: WNL Concentration: Poor Association: WNL Fund of Knowledge: Poor - Mood Mood: Depressed, Anxious - Affect Affect: Constricted, Depressed - Speech Speech: Soft - Formal Thought Process Formal Thought Process: Hallucinations, Delusions, Paranoia - Suicidal Ideation Suicidal Ideation: No - Homicidal Ideation Homicidal Ideation: No Goal/Treatment Plan - Goal/Treatment Plan Need for Continued Stay: Remain at risks for inpatient hospitalization Progress Toward Problem(s) and Goals/Treatment Plan: Major depressive disorder recurrent severe with psychotic features Opioid use disorder severe Opioid withdrawal Alcohol use disorder severe Alcohol withdrawal -CBT -Psychoeducation -Supportive therapy and group therapy -Neurontin for augmentation -Methadone taper -Librium taper for alcohol withdrawal -Withdrawal medication including Zofran/clonidine/Motrin -Trazodone for insomnia -Hydroxyzine for anxiety -Seroquel for psychosis -Paxil for depression
[2018-08-17] MEDS: Multiple Vitamins Tab PO SCH (09:18)
[2018-08-18] MEDS: Multiple Vitamins Tab PO SCH (09:53)
[2018-08-19] MEDS: Multiple Vitamins Tab PO SCH (09:36)
[2018-08-20] MEDS: Multiple Vitamins Tab PO SCH (09:22)
[2018-08-21 06:54] VITALS: PULSE 73; RESP 18; TEMP 99.1
[2018-08-21] MEDS: Multiple Vitamins Tab PO SCH (09:18)
[2018-08-21 11:55] VITALS: BP 130/78
== END 2018-08-21 11:58 | disposition home or self-care (01) | DRG 430 ==
LOC: C.ER 01:00 → C.5E 04:11
PROVIDERS: ADMIT Psychiatry & Neurology Psychiatry; ATTEND Psychiatry & Neurology Psychiatry
PROC: GZ3ZZZZ Medication Management (ICD-10-PCS; principal; 2018-08-14)
PROC: HZ81ZZZ Medication Management for Substance Abuse Treatment, Methadone Maintenance (ICD-10-PCS; 2018-08-14)
PROC: HZ89ZZZ Medication Management for Substance Abuse Treatment, Other Replacement Medication (ICD-10-PCS; 2018-08-14)
PROC: GZHZZZZ Group Psychotherapy (ICD-10-PCS; 2018-08-14)
PROC: GZ56ZZZ Individual Psychotherapy, Supportive (ICD-10-PCS; 2018-08-14)
DX: F33.3 Major depressive disorder, recurrent, severe with psychotic symptoms (principal); F11.23 Opioid dependence with withdrawal; F10.239 Alcohol dependence with withdrawal, unspecified; R45.851 Suicidal ideations; F41.9 Anxiety disorder, unspecified; G47.00 Insomnia, unspecified; F17.210 Nicotine dependence, cigarettes, uncomplicated; J44.9 Chronic obstructive pulmonary disease, unspecified; I10 Essential (primary) hypertension; E11.9 Type 2 diabetes mellitus without complications; Y90.6 Blood alcohol level of 120-199 mg/100 ml

== ENCOUNTER 2018-10-04 06:14 | Inpatient (IN) | payer MEDICAID ==
[2018-10-04 07:33] LABS: BASO % 0.6 % (0.0-2.0); EOS # 0.3 K/uL (0.0-0.7); EOS % 4.9 % (0.0-4.0); LYMPH # 1.5 K/uL (1.0-4.3); MEAN CELL VOLUME 89.2 fL (80.0-94.0); MEAN CORPUSCULAR HEMOGLOBIN 29.6 pg (27.0-31.0); MEAN CORPUSCULAR HGB CONC 33.2 g/dL (33.0-37.0); MEAN PLATELET VOLUME 9.9 fL (7.2-11.7); MONO # 0.4 K/uL (0.0-0.8); NEUT # 3.1 K/uL (1.8-7.0); NEUT % 59.5 % (50.0-75.0); NRBC % 0.1 % (0.0-2.0); RBC 4.39 Mil/uL (4.40-5.90); RED CELL DISTRIBUTION WIDTH 16.3 % (11.5-14.5); WHITE BLOOD COUNT 5.2 K/uL (4.8-10.8)
--- NOTE | 2018-10-04 07:33 | C.PDOC ---
History Of Present Illness 53 y.o. male presents for psych evaluation. Pt states "I'm depressed and I want to kill myself". He denies suicidal plan. Admits to using coccaine and drinking alcohol last night. Denies HI or any other associated symptoms. Time Seen by Provider: 10/04/18 07:07 Chief Complaint (Nursing): Psychiatric Evaluation History Per: Patient History/Exam Limitations: no limitations Onset/Duration Of Symptoms: Days Current Symptoms Are (Timing): Still Present Suicide/Self Injury Attempted (Context): None Recent travel outside of the [place]: No Past Medical History Reviewed: Historical Data, Nursing Documentation, Vital Signs Vital Signs: Last Vital Signs Temp 98.4 F 10/04/18 06:24 Pulse 104 H 10/04/18 06:24 Resp 20 10/04/18 06:24 BP 137/87 10/04/18 06:24 Pulse Ox 96 10/04/18 06:24 Primary Care Provider: FAMILY PROVIDER,NO - Medical History PMH: Anxiety, Asthma, COPD, Depression, Diabetes, HTN Denies: Hepatitis, HIV, Seizures, Sexually Transmitted Disease Surgical History: Tonsillectomy - [facility] Procedures ALCOHOL DETOXIFICATION (03/30/14) DETOXIFICATION SERVICES FOR SUBSTANCE ABUSE TREATMENT (07/20/15) DRUG DETOXIFICATION (03/30/14) GROUP COUNSELING FOR SUBSTANCE ABUSE TREATMENT, BEHAVIORAL (07/20/15) GROUP PSYCHOTHERAPY (08/14/18) INDIV PSYCHOTHERAPY FOR SUBSTANCE ABUSE, PSYCHOEDUCATION (07/27/18) INDIVIDUAL PSYCHOTHERAPY, SUPPORTIVE (08/14/18) INFLUENZA VACCINATION (03/30/14) MEDICATION MANAGEMENT (08/14/18) MEDS MGMT FOR SUBSTANCE ABUSE TREATMENT, METHADONE MAINT (08/14/18) MEDS MGMT FOR SUBSTANCE ABUSE TREATMENT, OTH REPL MED (08/14/18) Family History: States: Unknown Family Hx - Social History Hx Tobacco Use: Yes Hx Alcohol Use: Yes Hx Substance Use: Yes - Immunization History Hx Tetanus Toxoid Vaccination: No Hx Influenza Vaccination: No Hx Pneumococcal Vaccination: No Review Of Systems Except As Marked, All Systems Reviewed And Found Negative. Psych: Positive for: Depression, Suicidal ideation. Negative for: Other (homicidal ideations. ) Physical Exam - Physical Exam Appears: Non-toxic, No Acute Distress Skin: Warm, Dry Head: Atraumatic, Normacephalic Eye(s): bilateral: Normal Inspection Oral Mucosa: Moist Neck: Normal ROM, Supple Chest: Symmetrical, No Deformity Cardiovascular: Rhythm Regular, No Murmur Respiratory: Normal Breath Sounds, No Rales, No Rhonchi, No Wheezing Gastrointestinal/Abdominal: Normal Exam, Soft, No Tenderness Extremity: Bilateral: Atraumatic, Normal Color And Temperature, Normal ROM Neurological/Psych: Oriented x3, Normal Speech, Normal Cognition ED Course And Treatment - Laboratory Results Result Diagrams: 10/04/18 07:28 10/04/18 07:28 O2 Sat by Pulse Oximetry: 96 (RA) Pulse Ox Interpretation: Normal Medical Decision Making Medical Decision Making: Initial plan: -Blood sent. -Urinalysis Progress/Update: Medically cleared accepted Disposition - Disposition Disposition: HOSPITALIZED Disposition Time: 10:29 Condition: STABLE - Clinical Impression Clinical Impression: Moderate major depression, single episode, Depressed - Scribe Statement The provider has reviewed the documentation as recorded by the Scribe (Aileen Garcia) Provider Attestation: All medical record entries made by the Scribe were at my direction and personally dictated by me. I have reviewed the chart and agree that the record accurately reflects my personal performance of the history, physical exam, medical decision making, and the department course for this patient. I have also personally directed, reviewed, and agree with the discharge instructions and di sposition. Decision To Admit - Pt Status Changed To: Hospital Disposition Of: Inpatient - Admit Certification Admit to Inpatient:: After my assessment, the patient will require hospitalization for at least two midnights. This is because of the severity of symptoms shown, intensity of services needed, and/or the medical risk in this patient being treated as an outpatient. - InPatient: Physician Admission Certification: I certify that this patient requires 2 or mo re midnights of care for the following reason:: si needs inpt tx - . Bed Request Type: Psychiatry Admitting Physician: Kalpana Asher Patient Diagnosis: Moderate major depression, single episode
[2018-10-04 07:38] LABS: SQUAMOUS EPITHIAL < 1 /hpf (0-5); URINE BILIRUBIN NEGATIVE (NEGATIVE); URINE BLOOD 1+ (NEGATIVE); URINE CLARITY Clear (Clear); URINE COLOR Yellow (YELLOW); URINE GLUCOSE (UA) NORMAL (Normal); URINE LEUKOCYTE ESTERASE NEG Leu/uL (Negative); URINE PROTEIN 1+ mg/dL (NEGATIVE); URINE UROBILINOGEN NORMAL mg/dL (0.2-1.0)
[2018-10-04 07:50] LABS: ALB/GLOB RATIO 1.3 (1.0-2.1); ALBUMIN 4.4 g/dL (3.5-5.0); ALT/SGPT 49 U/L (21-72); AST/SGOT 85 U/L (17-59); BLOOD UREA NITROGEN 16 mg/dL (9-20); CALCIUM 10.2 mg/dl (8.6-10.4); GFR NON-AFRICAN AMERICAN > 60
[2018-10-04 07:51] LABS: ACETAMINOPHEN < 10.0 ug/mL (10.0-30.0); SALICYLATE < 1.0 mg/dL 1
[2018-10-04 08:38] LABS: BARBITURATES, UR NEGATIVE (NEGATIVE); BENZODIAZEPINES, UR NEGATIVE (NEGATIVE)
[2018-10-04 08:40] LABS: OPIATES, UR POSITIVE (NEGATIVE); PHENCYCLIDINE, UR POSITIVE (NEGATIVE)
--- NOTE | 2018-10-04 11:12 | PCM.BM ---
<Rosetta Palumbo - Last Filed: 10/04/18 11:10> Treatment Plan Problems - Problems identified on initial assessmt Medication Nonadherence Date Initiated: 10/04/18 Time Initiated: 11:11 Assessment reference: NA Status: Active Hopelessness Date Initiated: 10/04/18 Time Initiated: 11:12 Assessment reference: NA Status: Active Treatment assets and liabiliti Patient Assests: cooperative, self-reliant, ADL independent, negotiates basic needs Patient Liabilities: financial problems, poor support system, dietary restrictions, substance abuse - Milieu Protocol Maintain good personal hygiene: daily Encourage regular showers, daily Remind patient to perform daily oral care, daily Assist patient to perform ADL's Conduct patient checks and document Observation sheet: Q15 minutes Maintain personal safety: every shift Educate patient to report safety concerns to staff, every shift Monitor environment for contraband/sharps Medication safety: Monitor for expected outcome, potential side effects: every shift, Assess barriers to learning: every shift, Assess readiness for medication education: every shift <Kalpana Asher - Last Filed: 10/07/18 22:28> - Diagnosis (1) Major depression with psychotic features Status: Acute Interventions: 10/07/18 22:29 * Assess/adjust medications daily and /or as needed * See patient on an individual basis 7x/week to assess symptoms of depression * Monitor for side effects & effectiveness of medications * <Ann Bajwa - Last Filed: 10/08/18 15:04> Family Contact Family involvement: Patient does not wish Family/SO involvement Family contact: Patient declines to allow family contact at present - Goals for Treatment Patient goals for treatment: "I want to go to [facility]." Discharge/Continuing Care - Education Needs Education Needs: Patient Medication, Patient Diagnosis/Disease Process, Patient Coping Skills, Patient Placement options, Patient Community resources - Discharge Discharge Criteria: Free of Suicidal thoughts, Free of paranoid thoughts, Free of agitation, Normal sleep pattern, Ability to care for self, No longer exhibiting s/s of withdrawal, Reduction of target symptoms Discharge to:: Home - Treatment Team Participation Discussed with Family/SO: No Was Patient/Family/SO present at Treatment Team Meeting: Yes
--- NOTE | 2018-10-04 20:00 | PCM.PSYCH ---
Initial Psychiatric Evaluation - Initial Psychiatric Evaluation Type of Admission: Voluntary Legal Status: Capacity Chief Complaint (in patient's own words): "I have been depressed and hearing voices" Patient's Reaction to Hospitalization: Patient is a 53 YO M with past psych history of depression with psychosis and substance use who presented to the [facility] ED with suicidal ideations. Patient reports feeling depressed and self medicating with heroin, cocaine and alcohol. He reports using 6-8 bags of heroin, last use was yesterday when he sniffed 6 bags. He reports that he smokes 2-3 grams of cocaine daily, and he started using when he was 13years old. He reports smoking about 1 pack of cigarettes daily, he does not want to nicotine patch. He also drinks about 2 pints of vodka daily, last use was yesterday. UDS+ for Cocaine, Opiates, Cannabis, PCP, ETOH BAL 195. Pt reports feeling depressed regarding his polysubstance abuse. He reports that he feels lonely, is unemployed still affected by his relationships that have been broken. He was hospitalized for suicidal and homicidal ideation at [facility] on last month. Patient was sent to rehab on discharge and did not follow up. patient has attended Methadone Maintenence at [facility] where he was prescribed 70mg daily in 2016, but was discharged from the program after missing multiple days. He currently reports auditory and visual hallucinations, hearing voices commanding him to hurt himself and others. He was visual hallucinations of people watching him. He reported feeling paranoid, stating "I need to be alert when people come to attack me." Patient reports being non-compliant with all his psychiatric medications since discharge. On exam patient was visibly agitated, nervous and had minimal eye contact. He had pressured speech and visible tremors. He remained superficially cooperative but guarded about the details. He reports withdrawal symptoms from heroin including nausea, vomiting, cramps and joint pain. He reports at times depressed mood and feelings of hopelessness and helplessness. Current Medications: Active Medications Generic Name Dose Route Start Last Admin Trade Name Freq PRN Reason Stop Dose Admin Chlordiazepoxide 25 mg 10/05/18 00:00 Librium PO 10/08/18 23:59 Q6 ANDRÉS Taper Chlordiazepoxide 25 mg 10/04/18 18:49 Librium PO Q4H PRN Alcohol Withdrawal Clonidine HCl 0.1 mg 10/04/18 18:49 Catapres PO Q4H PRN Symptoms of alcohol withdrawl Folic Acid 1 mg 10/05/18 10:00 Folic Acid PO DAILY [facility] Gabapentin 300 mg 10/05/18 10:00 Neurontin PO TID [facility] Hydrochlorothiazide 12.5 mg 10/05/18 10:00 Microzide PO DAILY [facility] Hydroxyzine HCl 50 mg 10/04/18 16:09 Atarax PO QID PRN Anxiety Lisinopril 10 mg 10/05/18 10:00 Zestril PO DAILY [facility] Metformin HCl 1,000 mg 10/04/18 17:00 10/04/18 17:42 Glucophage PO 1,000 mg BID [facility] Administration Methadone HCl 15 mg 10/06/18 09:00 Methadone PO 10/06/18 09:01 ONCE ONE Methadone HCl 10 mg 10/06/18 09:00 Methadone PO 10/06/18 09:01 ONCE ONE Methadone HCl 5 mg 10/07/18 09:00 Methadone PO 10/07/18 09:01 ONCE ONE Multivitamins 1 tab 10/05/18 10:00 Hexavitamin PO DAILY [facility] Paroxetine HCl 10 mg 10/05/18 10:00 Paxil PO DAILY [facility] Pneumococcal Polyvalent Vaccine 0.5 ml 10/06/18 10:00 Pneumovax 23 Vaccine IM 10/06/18 10:01 .ONCE ONE Thiamine HCl 100 mg 10/05/18 10:00 Vitamin B1 Tab PO DAILY [facility] Trazodone HCl 50 mg 10/04/18 18:49 Desyrel PO HS PRN Insomnia Past Psychiatric History - Past Psychiatric History Previous Treatment History: Inpatient Pertinent Medical Hx (Current Medical&Sleep Prob, Allergies): Allergies Allergy/AdvReac Type Severity Reaction Status Date / Time No Known Allergies Allergy Verified 10/04/18 06:30 Albuterol HFA [Ventolin HFA 90 mcg/actuation (8 g)] 1 puff INH RQ4 PRN #1 inhaler 08/04/18 Fluticasone/Vilanterol 200/25 [Breo Ellipta 200-25 Mcg INH] 1 puff INH RQD #1 puff 08/04/18 Thiamine [Vitamin B1 Tab] 100 mg PO DAILY #30 tab 08/04/18 hydroCHLOROthiazide [Microzide] 12.5 mg PO DAILY #30 cap 08/04/18 metFORMIN [glucOPHAGE] 1,000 mg PO BID #60 tab 08/04/18 traZODone [Desyrel] 50 mg PO HS PRN #30 tab 08/04/18 Gabapentin [Neurontin] 100 mg PO BID #60 cap 08/21/18 PARoxetine [Paxil] 40 mg PO DAILY #30 tab 08/21/18 QUEtiapine [Seroquel] 200 mg PO HS #30 tab 08/21/18 Review of Systems - Psychiatric Psychiatric: As Per HPI, Abnormal Sleep Pattern, Anxiety, Auditory Hallucinations, Depression, Suicidal Ideation, Visual Hallucinations Mental Status Examination - Personal Presentation Personal Presentation: Looks stated age - Affect Affect: Constricted, Depressed - Motor Activity Motor Activity: Calm - Reliability in Providing Information Reliability in Providing Information: Fair - Speech Speech: Relevant, Coherent - Mood Mood: Depressed, Anxious - Formal Thought Process Formal Thought Process: Hallucinations, Delusions, Flight of ideas - Hallucinations/Delusions Hallucinations: Visual, Auditory - Obsessions/Compulsions Obsessions: None Compulsions: None - Cognitive Functions Orientation: Person, Place, Situation, Time Sensorium: Alert Attention/Concentration: Attentive Estimate of Intelligence: Average Judgement: Imparied, as evidence by: Poor judgement - Risk Risk: Seizure, Withdrawal, Diminished functioning DSM 5 DX - DSM 5 DSM 5 Diagnosis: Major depressive disorder recurrent severe with psychotic features Opioid use disorder severe Opioid withdrawal Alcohol use disorder severe Alcohol withdrawal - Recommended/Plan of Treatment Treatment Recommendations and Plan of Treatment: Start Librium taper, Paxil 10mg daily and Seroquel 100mg at bedtime As need medications All risks, benefits and alternatives of the meds discussed, and the pt agreed and understood. Attend groups and activities Individual therapy daily Psychoeducation and support daily Encourage compliance with meds and after care Refer to outpatient program Teach healthy lifestyle methods, i.e. diet, exercise, meditation Smoking cessation and patch if needed - Smoking Cessation Smoking Cessation Initiated: No Reason for not providing: Patient declined
[2018-10-05] MEDS: Multiple Vitamins Tab PO SCH (09:40)
--- NOTE | 2018-10-05 20:33 | PCM.PYCHPN ---
Psychiatric Progress Note - Psychiatric Progress Note Patient Chief Complaint: "I have been depressed and hearing voices" Problems Identified/Issues Discussed: The pt is seen, chart reviewed, case is discussed with staff. The pt is compliant with medications and reports no side-effects. Symptoms are improving but needs more time to stabilize and to avoid relapse. Pt attends groups and activities. Support given, psycho-education provided. After care discussed. Medication Change: Yes (Start Seroqul 100mg at HS) Medical Record Reviewed: Yes Mental Status Examination - Cognitive Function Orientation: Person, Place, Situation, Time Attention: WNL Concentration: WNL - Mood Mood: Depressed, Anxious - Affect Affect: Constricted, Depressed - Formal Thought Process Formal Thought Process: Hallucinations, Delusions, Flight of ideas - Suicidal Ideation Suicidal Ideation: No - Homicidal Ideation Homicidal Ideation: No Goal/Treatment Plan - Goal/Treatment Plan Progress Toward Problem(s) and Goals/Treatment Plan: Continue medications Support and psychoeducation daily Attend groups and activities daily Individual therapy After care planning by SAIMA and the team - Smoking Cessation Smoking Cessation Initiated: No
[2018-10-06] MEDS: Multiple Vitamins Tab PO SCH (09:43)
[2018-10-06] MEDS ORDERED: Pneumococcal 23-Valent Vaccine IM ONE (10:00)
[2018-10-07 07:01] VITALS: O2SAT 95
[2018-10-07] MEDS: Multiple Vitamins Tab PO SCH (09:24)
--- NOTE | 2018-10-07 12:34 | PCM.PYCHPN ---
Psychiatric Progress Note - Psychiatric Progress Note Patient seen today, length of contact: 15 min Patient Chief Complaint: "Tired" Problems Identified/Issues Discussed: The pt is seen, chart reviewed, case discussed with staff. Support and psychoeducation given, CBT and [place] used briefly. He reports some improvement in withdrawal symptoms. Pt is improving slowly but needs more time for further stabilization. He is compliant with medications and recognizes the need for adequate support in order to avoid relapse. No SEs from medications, risks discussed. After care discussed Medication Change: Yes (detox changes daily) Medical Record Reviewed: Yes Mental Status Examination - Cognitive Function Orientation: Person, Place, Situation, Time Memory: Intact Attention: WNL Concentration: WNL Association: WNL Fund of Knowledge: Poor - Mood Mood: Depressed, Anxious - Affect Affect: Constricted, Depressed - Speech Speech: Appropriate - Formal Thought Process Formal Thought Process: Delusions - Suicidal Ideation Suicidal Ideation: No - Homicidal Ideation Homicidal Ideation: No Goal/Treatment Plan - Goal/Treatment Plan Need for Continued Stay: Discharge may exacerbated symptoms, Severe functional impairment Progress Toward Problem(s) and Goals/Treatment Plan: Continue medications Support and psychoeducation daily Attend groups and activities daily Individual therapy After care planning by SAIMA and the team
[2018-10-08] MEDS: Multiple Vitamins Tab PO SCH (09:38)
--- NOTE | 2018-10-08 12:39 | PCM.PYCHPN ---
Psychiatric Progress Note - Psychiatric Progress Note Patient seen today, length of contact: 15 min Patient Chief Complaint: "Anxious" Problems Identified/Issues Discussed: The pt is seen again, chart reviewed, and case is discussed with the team. The pt denies any side-effects from meds. Attends activities and groups, brief individual therapy provided Not ready for discharge due to ongoing symptoms and high relapse risk. After care discussed again. Medication Change: Yes (detox changes daily) Medical Record Reviewed: Yes Mental Status Examination - Cognitive Function Orientation: Person, Place, Situation, Time Memory: Intact Attention: WNL Concentration: WNL Association: WNL Fund of Knowledge: Poor - Mood Mood: Depressed, Anxious - Affect Affect: Constricted, Depressed - Speech Speech: Appropriate - Formal Thought Process Formal Thought Process: Delusions - Suicidal Ideation Suicidal Ideation: No - Homicidal Ideation Homicidal Ideation: No Goal/Treatment Plan - Goal/Treatment Plan Need for Continued Stay: Discharge may exacerbated symptoms, Severe functional impairment Progress Toward Problem(s) and Goals/Treatment Plan: Continue medications Support and psychoeducation daily Attend groups and activities daily Individual therapy After care planning by SAIMA and the team
[2018-10-09] MEDS: Multiple Vitamins Tab PO SCH (09:43)
--- NOTE | 2018-10-09 12:54 | PCM.PYCHPN ---
Psychiatric Progress Note - Psychiatric Progress Note Patient seen today, length of contact: 16 min Patient Chief Complaint: "Tired" Problems Identified/Issues Discussed: The pt is seen, chart reviewed, case discussed with staff. The pt is compliant with medications and reports no side-effects. Symptoms are improving but needs more time to stabilize. Pt attends groups and activities. Support given, psycho-education provided. After care discussed. Medication Change: Yes (detox changes daily) Medical Record Reviewed: Yes Mental Status Examination - Cognitive Function Orientation: Person, Place, Situation, Time Memory: Intact Attention: WNL Concentration: WNL Association: WNL Fund of Knowledge: Poor - Mood Mood: Depressed, Anxious - Affect Affect: Constricted, Depressed - Speech Speech: Appropriate - Formal Thought Process Formal Thought Process: Delusions - Suicidal Ideation Suicidal Ideation: No - Homicidal Ideation Homicidal Ideation: No Goal/Treatment Plan - Goal/Treatment Plan Need for Continued Stay: Discharge may exacerbated symptoms, Severe functional impairment Progress Toward Problem(s) and Goals/Treatment Plan: Continue medications Support and psychoeducation daily Attend groups and activities daily Individual therapy After care planning by SAIMA and the team
[2018-10-10 06:25] VITALS: BP 95/54; PULSE 86; RESP 20; TEMP 98.3
[2018-10-10] MEDS: Multiple Vitamins Tab PO SCH (09:28)
--- NOTE | 2018-10-10 09:32 | PCM.PYCHDC ---
Mental Status Examination - Mental Status Examination Orientation: Person, Place, Situation, Time Memory: Intact Mood: Anxious Affect: Constricted Speech: Appropriate Attention: WNL Concentration: Poor Association: WNL Fund of Knowledge: WNL Formal Thought Process: No Impairment Suicidal Ideation: No Current Homicidal Ideation?: No Discharge Summary - Discharge Note Reason for Hospitalization: Feeling very depressed, opioid use Laboratory Data: Abnormal Lab Results 10/10/18 07:38 POC Glucose (mg/dL) 247 H Consultations:: List each consultation separately and include: 1. Reason for request. 2. Findings. 3. Follow-up Summary of Hospital Course include:: 1. Description of specific treatment plan utilized for patients during their course of treatmen. 2. Summarize the time- course for resolution of acute symptoms and/or regressed behaviors. 3. Describe issues identified and worked on during hospitalization. 4. Describe medication utilized. 5. Describe medical problems identified and treated. 6. Reassessment of suicide risk Summary of Hospital Course: The pt was admitted and started on treatment with psychotherapy, support, psychoeducation and medications. All the risks and benefits of medications are discussed and the patient understood and agreed. MO and CBT used. The pt attended groups and activities, as well as milieu therapy. The pt improved with the treatments provided. After care discussed with the patient. He will go to [facility]. - Final Diagnosis (DSM 5) Condition upon Discharge: STABLE DSM 5: Major depressive disorder recurrent severe with psychotic features Opioid use disorder severe Opioid withdrawal Alcohol use disorder severe Alcohol withdrawal Disposition: HOME/ ROUTINE Follow-up Treatment Plan: Continue below medications after discharge. Follow after care plan as discussed. Use relapse prevention skills Return to ER or call 911 if suicidal, homicidal or symptoms relapse. Stay away from stress, alcohol and drugs. See primary doctor regularly and get labs. Prescriptions/Medication Reconciliation: Gabapentin [Neurontin] 300 mg PO TID #90 cap hydroCHLOROthiazide [Microzide] 12.5 mg PO DAILY #30 cap hydrOXYzine HCl [Atarax] 50 mg PO DAILY PRN #30 tab PRN Reason: Anxiety Lisinopril [Zestril] 10 mg PO DAILY #30 tab metFORMIN [glucOPHAGE] 1,000 mg PO BID #60 tab PARoxetine [Paxil] 20 mg PO DAILY #30 tab QUEtiapine [Seroquel] 100 mg PO HS #30 tab
== END 2018-10-10 11:24 | disposition home or self-care (01) | DRG 430 ==
LOC: C.ER 06:14 → C.5E 10:17
PROVIDERS: ADMIT Psychiatry & Neurology Psychiatry; ATTEND Psychiatry & Neurology Psychiatry
PROC: GZHZZZZ Group Psychotherapy (ICD-10-PCS; principal; 2018-10-04)
PROC: HZ2ZZZZ Detoxification Services for Substance Abuse Treatment (ICD-10-PCS; 2018-10-04)
PROC: HZ52ZZZ Individual Psychotherapy for Substance Abuse Treatment, Cognitive-Behavioral (ICD-10-PCS; 2018-10-04)
PROC: HZ59ZZZ Individual Psychotherapy for Substance Abuse Treatment, Supportive (ICD-10-PCS; 2018-10-04)
PROC: HZ56ZZZ Individual Psychotherapy for Substance Abuse Treatment, Psychoeducation (ICD-10-PCS; 2018-10-04)
PROC: HZ42ZZZ Group Counseling for Substance Abuse Treatment, Cognitive-Behavioral (ICD-10-PCS; 2018-10-04)
PROC: HZ46ZZZ Group Counseling for Substance Abuse Treatment, Psychoeducation (ICD-10-PCS; 2018-10-04)
PROC: GZ58ZZZ Individual Psychotherapy, Cognitive-Behavioral (ICD-10-PCS; 2018-10-04)
PROC: GZ56ZZZ Individual Psychotherapy, Supportive (ICD-10-PCS; 2018-10-04)
DX: F33.3 Major depressive disorder, recurrent, severe with psychotic symptoms (principal); F11.23 Opioid dependence with withdrawal; J44.9 Chronic obstructive pulmonary disease, unspecified; F10.230 Alcohol dependence with withdrawal, uncomplicated; I10 Essential (primary) hypertension; E11.9 Type 2 diabetes mellitus without complications; Y90.6 Blood alcohol level of 120-199 mg/100 ml; R45.851 Suicidal ideations; F41.9 Anxiety disorder, unspecified